=== PATIENT | male | born 1955 | race Caucasian/White ===

== ENCOUNTER 2016-12-23 22:44 | Emergency (ER) | payer OTHER ==
--- NOTE | ~2016-12-23 | CR72 ---
[facility]. [facility] A Service of [facility] & [facility] RADIOLOGY TEXT RESULTS PATIENT: ENRIQUE MERRILL LOCATION: SED : 59 UNIT #: [id number] AGE: [address]: Bennett Szymanski MD SEX: M ORDER DR: [id number] [place] [id number] E MR#: [id number] Acc #: [id number] NAME: ENRIQUE MERRILL : 1955 SEX: M STUDY DATE/TIME: 12/23/2016 23:25 UNIT: SED ROOM: STUDY DESCRIPTION: CR Chest Single View Portable Attending Physician: Bennett Szymanski M.D. Ordering Physician: Bennett Szymanski M.D. Primary Care Physician: Aureliano Parra M.D. MEDICAL IMAGING REPORT This report is preliminary unless electronic signature is present. EXAM Portable chest 12/23 at 2325 hours. INDICATIONS Shortness of air and cough for 3 days but worse over the last few hours. FINDINGS AP portable chest compared with 07/10/15. Cardiac and mediastinal contours are within normal limits. Left-side pacer is again seen. Lungs are clear. No pneumothorax. IMPRESSION No active disease. Dictated by... Thomas Alvarez Jr., M.D. THIS IS AN ELECTRONICALLY VERIFIED REPORT Thomas Alvarez Jr., M.D. at 12/24/2016 9:51 PM PUJA/amira TD: 12/24/2016 07:30 JOB #: [id number] MEDICAL IMAGING REPORT Page 1 of 1
--- NOTE | ~2016-12-23 | EKG ---
PATIENT: ENRIQUE MERRILL UNIT #: [id number] Ventricular Rate: 115 BPM Atrial Rate: 115 BPM P-R Interval: 130 ms QRS Duration: 92 ms Q-T Interval: 378 ms QTC Calculation(Bezet): 522 ms P [place]: 62 degrees Calculated R [place]: 53 degrees Calculated T [place]: 102 degrees Diagnosis Line: Sinus tachycardia Diagnosis Line: Nonspecific ST and T wave abnormality Diagnosis Line: Abnormal ECG Diagnosis Line: When compared with ECG of 02-SEP-2014 16:03, Diagnosis Line: Nonspecific T wave abnormality now evident in Diagnosis Line: Lateral leads Diagnosis Line: Confirmed by LORETA KOENIG MD ([id number]) on Diagnosis Line: 12/25/2016 4:45:39 PM INTERPRETING MD: LIBERTY BRIDGES
[~2016-12-23 22:44] MED LIST: ALBUTEROL17 GM INH; ASPIRIN; ASPIRIN PO; BAYER CHEWABLE81 MG PO; CARVEDILOL6.25 MG PO; COMBIVENT U/D3 M2; COREG PO; COREG3.125 MG; COREG6.25 MG PO; DIGOX0.125 MG; DIGOXIN PO; EFFEXOR-XR37.5 MG PO; HYDROMET SYRUP480 ML PO; K-DUR20 ME1 PO; KCL; KCL PO; LANOXICAPS0.1 M1 PO; LANOXIN PO; LEVAQUIN750 MG PO; LISINOPRIL; LISINOPRIL PO; LISINOPRIL10 MG PO; LOPID600 MG; LOPID600 MG PO; LORTAB 7.5-5001 TAB PO; NORCO 10/3251 TAB; OXYCODONE HCL30 MG PO; OXYCONTIN PO; OXYCONTIN60 MG; PHENERGAN25 M1 PO; PREDNISONE PO; PREVACID PO; PRILOSEC20 MG PO; PRILOSEC40 MG PO; PROTONIX; PROTONIX PO; ROXICODONE30 M1; ROXICODONE30 M1 PO; SYMBICORT INH; XANAX0.5 MG PO; ZESTRIL40 MG PO; ZITHROMAX PO
[2016-12-23 23:19] LABS: BASOPHIL% 1.3 % (0-2.5); EOSINOPHIL% 0.2 % (0.0-7.0); HEMATOCRIT 48.4 % (38.0-50.0); HEMOGLOBIN 15.9 gm/dL (13.0-16.0); LYMPHOCYTE# 0.8 X10e3 (1.0-3.5); LYMPHOCYTE% 24.1 % (17.0-45.0); MEAN CELL VOLUME 99.4 FL (83-96); MEAN CORPUSCULAR HEMOGLOBIN 32.6 PG (28-34); MEAN CORPUSCULAR HGB CONC 32.8 g/dL (30-36); MEAN PLATELET VOLUME 9.1 FL (6.5-11.5); MONOCYTE# 0.5 X10e3 (0-1.0); MONOCYTE% 15.5 % (3.0-12.0); NEUTROPHIL% 58.9 % (40-75); PLATELET COUNT 91 X10e3 (140-420); RED BLOOD COUNT 4.87 X10e (3.90-5.60); WHITE BLOOD COUNT 3.4 X10e3 (4.0-10.5)
[2016-12-23 23:20] LABS: INR 1.8; PROTHROMBIN TIME (PATIENT) 20.1 SECONDS (9.5-12.4)
[2016-12-23 23:22] LABS: DIFF IND NO
[2016-12-23 23:25] LABS: POC - CKMB <1.0 ng/mL (0.0-7.9); POC - TROPONIN <0.05 ng/mL (<=0.05)
[2016-12-23] MEDS ORDERED: PERCOCET PO (23:25)
[2016-12-23] MEDS ORDERED: XANAX0.5 M1 DOB (23:26)
[2016-12-23] MEDS ORDERED: DULERA 100 MCG/13 GM INH (23:26)
[2016-12-23 23:28] LABS: PARTIAL THROMBOPLASTIN TIME 38.8 SECONDS (25.6-38.1)
[2016-12-23 23:35] LABS: ALBUMIN SERUM 3.7 g/dL (3.5-5.0); ALKALINE PHOSPHATASE 135 U/L (32-92); ALT (SGPT) 25 U/L (10-40); AST (SGOT) 47 U/L (10-42); BILIRUBIN, DIRECT 1.3 mg/dL (0.0-0.2); BILIRUBIN,INDIRECT 2.7 mg/dL (0.0-0.9); BLOOD UREA NITROGEN 7 mg/dL (9-23); BUN/CREATININE RATIO 11.66; CALCIUM SERUM 8.7 mg/dL (8.4-10.2); CARBON DIOXIDE 36 mmol/L (22-31); CHLORIDE 90 mmol/L (100-111); CREATININE SERUM 0.6 mg/dL (0.6-1.4); DIGOXIN (LANOXIN) <0.2 ng/ml (1.0-2.0); GLOM FILT RATE Estimated 110.1 mL/min (>60); GLUCOSE FASTING 123 mg/dL (70-110); POTASSIUM 3.6 mmol/L (3.5-5.1); PROTEIN TOTAL SERUM 7.7 g/dL (6.0-8.3); SODIUM 136 mmol/L (135-145)
[2016-12-23 23:43] LABS: ARTERIAL BLOOD GAS CARBOXY HB 3.6 %sat (0.0-9.0); ARTERIAL BLOOD GAS HCO3 37.3 mmol/L
[2016-12-23 23:44] LABS: ARTERIAL BLOOD GAS MET HB -1.1 %sat (0.0-2.0); ARTERIAL DRAW? YES
[2016-12-23 23:45] LABS: ARTERIAL BLOOD GAS ALLEN TEST NORMAL; ARTERIAL BLOOD GAS ART SITE LEFT RADIAL
== END 2016-12-24 04:53 ==
LOC: SED 22:44
PROVIDERS: Emergency Medicine
DX: J96.00 Acute respiratory failure, unspecified whether with hypoxia or hypercapnia (principal); J44.1 Chronic obstructive pulmonary disease with (acute) exacerbation; J20.9 Acute bronchitis, unspecified; J44.0 Chronic obstructive pulmonary disease with (acute) lower respiratory infection; I50.9 Heart failure, unspecified; Z88.2 Allergy status to sulfonamides; Z79.899 Other long term (current) drug therapy
CPT/HCPCS: 36415; 36600; 71010; 80048; 80076; 80162; 82553; 82803; 83605; 83880; 84484; 85025; 85610; 85730; 87040; 93005; 94640; 94644; 96365; 96375; 99291; G0480; J0456; J0696; J1940; J2405; J2930